=== PATIENT | male | born 1965 | race Caucasian/White ===

== ENCOUNTER 2022-10-02 11:16 | Emergency (ER) | payer OTHER, SELFPAY ==
--- NOTE | ~2022-10-02 | XR_ITS ---
EXAMINATION: XR FINGER, LEFT CLINICAL INFORMATION: Laceration COMPARISON: None TECHNIQUE: 3 views of the left third digit. FINDINGS: Laceration at the tip of the distal third digit with soft tissue gas, soft tissue irregularity and fracture of the tuft of the distal phalanx. Several small ossific fragments of the tuft are distally displaced (along with displaced swollen, irregular soft tissues at the tip of the digit). Otherwise, no acute osseous injury in the visualized hand or wrist. No radiopaque foreign body. Well-corticated ossicle at the level of the ulnar styloid could be sequela of remote trauma. A subchondral cyst is present within the medial aspect of the radius at the radiolunate joint. Mild osteoarthritis of multiple joints, including first carpometacarpal joint and interphalangeal joints. 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 XR/XR finger LT min 2V IMPRESSION: Laceration of the tip of the middle finger. There is both soft tissue and osseous injury. Small, distally displaced ossific fragments of the phalangeal tuft are noted. No radiopaque foreign body in this area of injury.
[2022-10-02 11:59] VITALS: BP 139/87; PULSE 74; RESP 20; TEMP 36.6; O2SAT 98; BMI 34.0
[2022-10-02] MEDS: Lidocaine HCl 1 % MPF 5 ML VIAL 20 ML SUBCUT (14:08)
--- NOTE | 2022-10-02 14:44 | ED.SKABFB ---
HPI - Skin/Abscess/Foreign Bdy General Chief complaint: Skin/Abscess/Foreign Body Stated complaint: Finger lac/Work inj Time Seen by Provider: 10/02/22 13:30 Source: patient Mode of arrival: ambulatory Limitations: no limitations History of Present Illness HPI narrative: 57-year-old male with a history of high cholesterol who presents to the ER with complaints of laceration to the left middle finger. Patient is right handed. Patient reports he was working with a table saw cutting aluminum metal when his hand slipped causing it to go into the table saw. He was wearing gloves. He was able to wash the area prior to arrival with soap and water. He went to Urgent Care and unfortunately were unable to obtain an x-ray of his hand and so he was sent in to the ER for further evaluation. His tetanus shot is up-to-date. he denies any numbness, tingling or weakness of the extremity Related Data Previous Rx's Medication Instructions Recorded cephalexin 500 mg capsule 500 mg PO BID #14 caps 10/02/22 ibuprofen 800 mg tablet 800 mg PO Q8H PRN pain #20 tabs 10/02/22 Allergies Allergy/AdvReac Type Severity Reaction Status Date / Time No Known Allergies Allergy Verified 10/02/22 12:02 Review of Systems Review of Systems: Yes all other systems are reviewed and are negative Constitutional: Constitutional: Reports no additional constitutional complaints, Denies body ache(s), Denies chills, Denies fever(s), Denies headache(s) and Denies weakness Eyes: Eyes: Reports no additional eye complaints and Denies change in vision ENT: Reports system reviewed and no additional complaints, except as documented, Denies dizziness, Denies headache(s), Denies nasal congestion, Denies nasal discharge and Denies neck pain Cardiovascular: Cardiovascular: Reports no additional cardiovascular complaints, Denies chest pain, Denies leg edema and Denies dyspnea Respiratory: Respiratory: Reports no additional respiratory complaints, Denies cough and Denies dyspnea Gastrointestinal: Gastrointestinal: Reports no additional gastrointestinal complaints, Denies abdominal pain, Denies diarrhea, Denies nausea and Denies vomiting Genitourinary: Genitourinary: Denies urinary incontinence Musculoskeletal: Musculoskeletal: Reports no additional musculoskeletal complaints, Denies back pain, Reports arthralgias, Denies joint swelling, Denies neck pain, Denies numbness and Denies tingling Integumentary/Breasts: Skin/Breast: Reports system reviewed and no additional complaints, except as docu and Denies rash Neurologic: Reports system reviewed and no additional complaints, except as documented, Denies Abnormal speech present, Denies dizziness, Denies headache(s), Denies numbness, Denies tingling and Denies weakness PMFSH Past Medical History Attestation statement: The following information was validated with the patient. Source: old records reviewed and nursing notes reviewed Social History Social History Advance Directives: No Advance Directives Information Provided: Yes Physical Exam Vital Signs: Vital Signs: Last Vital Signs Temp 97.8 F 10/02/22 11:59 Pulse 74 10/02/22 11:59 Resp 20 10/02/22 11:59 BP 139/87 10/02/22 11:59 Pulse Ox 98 10/02/22 11:59 O2 Del Method 10/02/22 11:59 BMI result Body Mass Index 34.0 Const: General: cooperative, healthy appearing, comfortable and no acute distress Orientation/consciousness: patient oriented x3 Limitations: no limitations HEENT: Head: Yes normal to inspection Ears: hearing grossly normal bilaterally General nose exam: Normal external nose present Face and sinus: Yes normal facial exam Mouth: Normal oral and palatal mucosa present Throat: Yes posterior oropharynx normal Eyes: General: appearance normal, both eyes and all related structures Pupils: Equal, round and reactive pupils present Neck: Neck: Yes normal visual inspection Chest: Chest palpation & inspection: normal inspection of the chest Resp: Effort & Inspection: normal respiratory effort Auscultation: clear to auscultation bilaterally Cardio: Rate: regular rate Rhythm: regular rhythm Peripheral pulses: Peripheral pulses 2+ throughout GI: Inspection: Yes normal to inspection Palpation (GI): Soft to palpation and nontender Auscultation: normal bowel sounds Back/Spine/Pelvis: Thoracic/Lumbar Spine: thoracic and lumbar spine normal to inspection Skin: General skin exam: no rashes or lesions noted Neuro: General: patient oriented x3, no focal motor deficits and normal sensation to monofilament Cranial nerves: Yes Equal, round and reactive pupils present Cognition (Neuro): normal cognition Speech: No Abnormal speech present Gait exam (Neuro): Normal gait present Motor exam (neuro): 5/5 motor strength present throughout Extrem: Other: The patient is able to flex and extend the digit with no difficulty. Sensation is intact. The nail is and multiple fragments and partially avulsed. The nail matrix is intact. General: Yes normal to inspection Course Course Course Narrative: X-rays of the left hand show distal bony fragments of the tuft of the digit. The patient received a nerve block for pain control and the wound was closed with sutures. See procedure note. Patient will be discharged home with prophylactic antibiotics, NSAIDs for pain control. I did speak to Orthopedics and plan is for patient to follow-up with Orthopedics next week for revision amputation of the distal tip. Reviewed worrisome signs and symptoms with the patient and when to return to the emergency room. Comfortable plan for discharge home. Medications Administered Discontinued Medications Generic Name Dose Route Start Last Admin Trade Name Freq PRN Reason Stop Dose Admin Lidocaine HCl 20 ml 10/02/22 13:34 10/02/22 14:08 Lidocaine Hcl 1 % Mpf 5 Ml Vial SUBCUT 10/02/22 13:35 20 ml ONCE ONE Administration Medical Decision Making Medical Decision Making [facility] Narrative: This a 57-year-old male who is [id number] who presents to the ER with a laceration to the left middle finger which occurred while working while operating a table saw. Differential Diagnosis Differential Diagnoses: The differential diagnosis associated with the presentation includes Laceration, open fracture, avulsion Consult Healthcare Provider Management of the patient was discussed with: [employer] There is a distal tuft avulsion fracture with extensive laceration. The distal tip is quite macerated in multiple pieces. I did speak to Orthopedics on-call (Sara). They recommended closing the skin flap with sutures and having the patient follow up next week in the office for a revision amputation of the distal tip Independent Interpretation I performed an independent interpretation of an: Plain X-Ray Interpretation: I independently reviewed the x-ray of the finger and agree with radiologist's report Radiology Impression Discussion of test interpretation with radiology: I have reviewed the radiologist's reading. Radiologist Impression: Launch?Image [address] [address] XRay Report Signed Patient: Shimon James MR#: [id number] : 1965 Acct:[id number] Age/Sex: 57 / M ADM Date: 10/02/22 Loc: HO.ED Attending Dr: Ordering Physician: Elias ED Physician Date of Service: 10/02/22 Procedure(s): XR finger LT min 2V Accession Number(s): [id number] cc: Generic ED Physician~ EXAMINATION: XR FINGER, LEFT CLINICAL INFORMATION: Laceration? COMPARISON: None? TECHNIQUE: 3 views of the left third digit. FINDINGS: Laceration at the tip of the distal third digit with soft tissue gas, soft tissue irregularity and fracture of the tuft of the distal phalanx. Several small ossific fragments of the tuft are distally displaced (along with displaced swollen, irregular soft tissues at the tip of the digit). Otherwise, no acute osseous injury in the visualized hand or wrist. No radiopaque foreign body. Well-corticated ossicle at the level of the ulnar styloid could be sequela of remote trauma. A subchondral cyst is present within the medial aspect of the radius at the radiolunate joint. Mild osteoarthritis of multiple joints, including first carpometacarpal joint and interphalangeal joints. 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 XR/XR finger LT min 2V IMPRESSION: Laceration of the tip of the middle finger. There is both soft tissue and osseous injury. Small, distally displaced ossific fragments of the phalangeal tuft are noted. No radiopaque foreign body in this area of injury. ? Procedures Laceration Laceration 1: Site: hand (Left 3rd digit) Side (If applicable): left Size (cm): 2 Description: flap, irregular and other (involving nail ) Pre-repair: wound explored, irrigated extensively (w/ 1 L normal saline ) and wound margins revised Skin layer closed with: vicryl Size (cm): 3-0 Number of sutures: 5 Technique: simple, interrupted Nerve Block Nerve Block 1: Local Anesthetic: lidocaine 1% Amount of anesthesia used (mL): 4 Side: left Nerve Blocks: digital Procedure Successful: Yes Patient Tolerated Procedure: well Complications: none Discharge Plan Discharge Clinical Impression: Laceration of finger, Open fracture Patient Disposition: Home, Self-Care Instructions: Laceration (ED), Finger Laceration (ED) Additional Instructions: You need to call Orthopedics to see them next week as you will need a amputation of the distal part of finger. You had 5 sutures placed Tomorrow removed the dressing and wash the wound with soap and water. Do not let it soak in water Return for fever, redness, drainage Prescriptions: New ibuprofen 800 mg tablet 800 mg PO Q8H PRN (Reason: pain) Qty: 20 0RF cephalexin 500 mg capsule 500 mg PO BID Qty: 14 0RF Referrals: [facility] [Provider Group] Stand Alone Forms: Work/School Release Interventions: ED Discharge Assessment Last Done: 10/02/22 14:49 Discharge Date/Time: 10/02/22 14:50
== END 2022-10-02 14:50 | disposition home or self-care (01) ==
PROVIDERS: Emergency Provider Emergency Medicine; PCP Physician Assistant Medical
DX: S62.633B Displaced fracture of distal phalanx of left middle finger, initial encounter for open fracture (principal); W31.2XXA Contact with powered woodworking and forming machines, initial encounter; E78.5 Hyperlipidemia, unspecified; Y93.89 Activity, other specified; Y92.59 Other trade areas as the place of occurrence of the external cause; Y99.0 Civilian activity done for income or pay
CPT/HCPCS: 12041; 73140; 99282; 99283; 99284

== ENCOUNTER → 2022-10-08 09:28 | Outpatient (BNVA) | payer OTHER, SELFPAY | PROVIDERS: PCP Physician Assistant Medical; Visit Provider Orthopaedic Surgery | DX: S62.633B Displaced fracture of distal phalanx of left middle finger, initial encounter for open fracture (principal) | CPT/HCPCS: 99202 ==

== ENCOUNTER 2022-10-15 09:26 | Outpatient (REF) | payer OTHER, SELFPAY | END 2022-10-15 09:27 | disposition home or self-care (01) | LOC: HO.HOSX 09:26 | PROVIDERS: Visit Provider Orthopaedic Surgery | DX: Z13.89 Encounter for screening for other disorder (principal) ==

== ENCOUNTER 2022-10-16 09:32 | Outpatient (REF) | payer OTHER, SELFPAY ==
--- NOTE | ~2022-10-16 | XR_ITS ---
EXAMINATION: XR HAND, LEFT CLINICAL INFORMATION: Left hand pain, injury COMPARISON: None available. TECHNIQUE: PA, lateral, and oblique views of the left hand. FINDINGS: There is a displaced fracture of the distal tuft of the third distal phalanx with bony fragments extending dorsally. Adjacent soft tissue swelling and soft tissue laceration. Remaining osseous structures are intact. Joint spaces are well-maintained. XR/XR hand LT min 3V IMPRESSION: Open displaced fracture of the distal tuft of the third distal phalanx
== END 2022-10-16 09:33 | disposition home or self-care (01) ==
LOC: HO.HOSX 09:32
PROVIDERS: Visit Provider Orthopaedic Surgery
DX: S62.633B Displaced fracture of distal phalanx of left middle finger, initial encounter for open fracture (principal)
CPT/HCPCS: 73130

== ENCOUNTER → 2022-10-22 12:52 | Outpatient (BNVA) | payer OTHER, SELFPAY | PROVIDERS: PCP Physician Assistant Medical; Visit Provider Orthopaedic Surgery | DX: Z13.89 Encounter for screening for other disorder (principal) ==

== ENCOUNTER 2022-11-05 10:15 | Outpatient (REF) | payer OTHER, SELFPAY ==
--- NOTE | ~2022-11-05 | XR_ITS ---
EXAMINATION: XR HAND, LEFT CLINICAL INFORMATION: Pain COMPARISON: 10/16/2022 TECHNIQUE: PA, lateral, and oblique views of the left hand. FINDINGS: Redemonstration of comminuted displaced fracture of the distal tuft of the third distal phalanx with bony fragments along the dorsal surface and cortical irregularity of the tuft. Soft tissue swelling. XR/XR hand LT min 3V IMPRESSION: Redemonstration of comminuted displaced fracture of the distal tuft of the third distal phalanx with bony fragments along the dorsal surface and cortical irregularity of the tuft.
== END 2022-11-05 10:16 | disposition home or self-care (01) ==
LOC: HO.HOSX 10:15
PROVIDERS: Visit Provider Orthopaedic Surgery
DX: S61.303D Unspecified open wound of left middle finger with damage to nail, subsequent encounter (principal); S62.633D Displaced fracture of distal phalanx of left middle finger, subsequent encounter for fracture with routine healing; W31.2XXD Contact with powered woodworking and forming machines, subsequent encounter
CPT/HCPCS: 73130